=== PATIENT | female | born 1960 ===

== ENCOUNTER 2022-01-17 08:28 | Day surgery (SDC) | payer OTHER ==
[2022-01-17] MEDS ORDERED: PERCOCET 5-3251 EACH PO (13:04)
== END 2022-01-17 16:50 | disposition home or self-care (01) ==
LOC: CIR.AMB 08:28
PROVIDERS: ATTEND Surgery
DX: C73 Malignant neoplasm of thyroid gland (principal); Z20.822 Contact with and (suspected) exposure to COVID-19; I10 Essential (primary) hypertension; J45.909 Unspecified asthma, uncomplicated; E11.9 Type 2 diabetes mellitus without complications; Z85.3 Personal history of malignant neoplasm of breast; Z91.040 Latex allergy status